=== PATIENT | male | born 1970 | race Caucasian/White ===

== ENCOUNTER 2023-10-26 13:23 | Outpatient (RCR) | payer OTHER, SELFPAY ==
--- NOTE | 2023-10-27 12:41 | HO.PHP ---
Evan was scheduled to begin PHP today but he called this morning indicating that he would not be attending. He requested to speak with Anette Griffith, ui programmer. Anette called Evan and he reported that he did not feel comfortable with the staff at [facility], and also stated that he was too physically tired to attend an in person PHP due to his weight. He reported that his weight is at the highest it's ever been. He said he is beginning diarectic today and that this should do the trick and knock some weight off . He would like to work on this and his medical situation for now. He said he had RSV and is also uncomfortable with staff not being mandated to wear masks. He is afraid of becoming sick. We both agreed this was not a good time for him to attend PHP. In addition, we also discussed this particular program being the best fit for him. He was instructed to call or contact centre manager directly, telephone number was provided, if she explores this program in the future to ensure whether it's the best place for him.
== END 2023-10-26 23:59 | disposition home or self-care (01) ==
LOC: HO.PHPA 13:23
PROVIDERS: Visit Provider Psychiatry & Neurology Psychiatry
DX: F32.A Depression, unspecified (principal)
CPT/HCPCS: 90791